=== PATIENT | female | born 1970 | race African-American/Black ===

== ENCOUNTER 2022-04-05 00:22 | Emergency (ER) | payer MEDICAID ==
[~2022-04-05] VITALS: Ht 170.2 cm; Wt 87.0 kg
[~2022-04-05 00:22] MED LIST: ASPI-986 PO; ATOR20TA65 PO; CARV25TA47 PO; FURO80TA3 PO; LOSA100T32 PO; PANT40TA51 PO; SIMV-43 PO; SPIR25TA6 PO
[2022-04-05 01:21] LABS: CHLORIDE 102 mEq/L (98-107)
[2022-04-05 01:22] LABS: BASOPHILS % 0.5 % (0.0-2.0); EOSINOPHILS % 1.6 % (0.0-5.0); HEMATOCRIT. 38.2 % (36.0-48.0); HEMOGLOBIN. 12.3 g/dL (12.0-16.0); LYMPHOCYTES % 32.7 % (20.0-50.0); MEAN CORPUSCULAR HEMOGLOBIN 26.1 pg (28.0-32.0); MEAN CORPUSCULAR VOLUME 80.9 fL (81.0-99.0); MEAN PLATELET VOLUME 7.8 fl (7.4-10.4); MONOCYTES % 14.2 % (2.0-8.0); PLATELET 251 x1000/uL (130-400); RED BLOOD CELL COUNT 4.72 mill/uL (4.2-5.4); RED CELL DISTRIBUTION WIDTH 14.6 % (11.6-14.6)
[2022-04-05 01:23] LABS: CLARITY URINE CLEAR (CLEAR); COLOR URINE YELLOW (YELLOW); KETONES URINE NEGATIVE (NEGATIVE); LEUKOCYTE ESTERASE URINE NEGATIVE (NEGATIVE); NITRITE URINE NEGATIVE (NEGATIVE); OCCULT BLOOD URINE NEGATIVE (NEGATIVE); PH URINE 8.5 (4.5-8.0); PROTEIN URINE TRACE (NEGATIVE); SPECIFIC GRAVITY URINE 1.017 (1.005-1.030)
[2022-04-05 01:30] LABS: CREATINE KINASE 256 IU/L (26-192); ETHANOL BLOOD < 10 mg/dL
[2022-04-05 02:06] LABS: *AMPHETAMINES SCREEN URINE NEGATIVE (NEGATIVE); *BARBITURATES SCREEN URINE NEGATIVE (NEGATIVE); *BENZODIAZEPINES SCREEN URINE NEGATIVE (NEGATIVE); *COCAINE SCREEN URINE NEGATIVE (NEGATIVE); CANNABINOID URINE SCREEN PRESUMTIVE POSITIVE (NEGATIVE); METHADONE URINE SCREEN NEGATIVE (NEGATIVE); OPIATES URINE SCREEN NEGATIVE (NEGATIVE); PHENCYCLIDINE URINE SCREEN NEGATIVE (NEGATIVE)
[2022-04-05 07:46] VITALS: BP 170/105
== END 2022-04-05 09:18 | disposition home or self-care (01) ==
LOC: ER 00:38
DX: T42.6X2A Poisoning by other antiepileptic and sedative-hypnotic drugs, intentional self-harm, initial encounter (principal); F32.A Depression, unspecified; F20.9 Schizophrenia, unspecified; R45.851 Suicidal ideations; J45.909 Unspecified asthma, uncomplicated; I11.9 Hypertensive heart disease without heart failure; F12.10 Cannabis abuse, uncomplicated; Z95.0 Presence of cardiac pacemaker; Z98.890 Other specified postprocedural states; Z79.82 Long term (current) use of aspirin; Z88.3 Allergy status to other anti-infective agents; Y92.018 Other place in single-family (private) house as the place of occurrence of the external cause
CPT/HCPCS: 36415; 80053; 80305; 80307; 80320; 80329; 81003; 82550; 85025; 93005; 99284; G0480

== ENCOUNTER 2022-10-06 09:45 | Emergency (ER) | payer MEDICAID ==
[~2022-10-06] VITALS: Ht 160 cm; Wt 104.0 kg
[~2022-10-06 09:45] MED LIST changes: -LOSA100T32 PO; +LOSA100T33 PO
[2022-10-06 10:17] VITALS: O2SAT 98
[2022-10-06] MEDS ORDERED: OXYM30SP26 BOTHNSTRLS (11:11)
[2022-10-06 11:26] VITALS: BP 138/70; PULSE 73; RESP 18; TEMP 98
== END 2022-10-06 11:27 | disposition home or self-care (01) ==
LOC: ER 09:45
DX: R04.0 Epistaxis (principal); I11.0 Hypertensive heart disease with heart failure; I50.9 Heart failure, unspecified; F12.10 Cannabis abuse, uncomplicated; I10 Essential (primary) hypertension; J45.909 Unspecified asthma, uncomplicated; Z86.59 Personal history of other mental and behavioral disorders; Z88.1 Allergy status to other antibiotic agents
CPT/HCPCS: 30901; 81025; 99282